=== PATIENT | male | born 1980 | race Native Hawaiian/Other Pacific Islander ===

== ENCOUNTER 2022-09-19 12:42 | Emergency (ER) | payer OTHER ==
[~2022-09-19] VITALS: Ht 175.3 cm; Wt 90.7 kg
[2022-09-19 12:42] VITALS: BP 147/71; TEMP 97.3
== END 2022-09-19 14:50 | disposition home or self-care (01) ==
LOC: ED 12:42
DX: S00.86XA Insect bite (nonvenomous) of other part of head, initial encounter (principal); S00.96XA Insect bite (nonvenomous) of unspecified part of head, initial encounter; S20.469A Insect bite (nonvenomous) of unspecified back wall of thorax, initial encounter; W57.XXXA Bitten or stung by nonvenomous insect and other nonvenomous arthropods, initial encounter
CPT/HCPCS: 36415; 96372; 96374; 96375; 99285